=== PATIENT | female | born 2005 | race Caucasian/White ===

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

== ENCOUNTER 2025-08-25 20:56 | Emergency (ER) | payer BC, OTHER, SELFPAY ==
--- NOTE | ~2025-08-25 | CT_ITS ---
CLINICAL HISTORY: fall with headstrike CT cervical spine without contrast Comparison: None provided Findings: Straightening of the normal cervical lordosis. No significant degenerative change. No acute fractures or dislocations. Visualized intracranial contents are unremarkable. Soft tissues of the neck are normal. Lung apices are clear. IMPRESSION: No acute traumatic abnormality in the cervical spine. This document has been electronically signed by: Sarah Jose MD on 08/26/2025 00:04:16
--- NOTE | ~2025-08-25 | CT_ITS ---
CLINICAL HISTORY: fall with headstrike CT head without contrast Comparison: None provided Findings: BRAIN: No acute infarct, hemorrhage, or mass effect. No abnormal atrophy. CSF SPACES: No hydrocephalus or effacement of basal cisterns. SKULL: No calvarial fracture. SINUSES: No significant mucosal thickening or effusion on limited views. ORBITS: Limited views are unremarkable. OTHER: Negative. IMPRESSION: 1. No acute intracranial findings. This document has been electronically signed by: Sarah Jose MD on 08/26/2025 00:08:36
[2025-08-25 21:36] VITALS: BP 105/64; PULSE 78; RESP 18; TEMP 36.4; O2SAT 98; BMI 22.7
[2025-08-25 23:28] VITALS: BP 109/62; PULSE 65; RESP 16; TEMP 36.6; O2SAT 100
--- OUTSIDE RECORDS SUMMARY | 2025-08-25 23:34 | XMS_ITS | Clinical Summary ---
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 Pain in right hand 11/29/2022 Pain in left hand 11/29/2022 Surgical History Surgery Date Site/Laterality Comments ADENOIDECTOMY Medical History Medical History Date Comments Vision problems Adhd Generalized anxiety disorder Autism Social History Tobacco Use Types Packs/Day Years Used Date Smoking Tobacco: Never Assessed Comments Unknown Sex and Gender Information Value Date Recorded Sex Assigned at Not on file Legal Sex Female 10:21 AM EST Gender Identity Not on file Sexual Orientation Not on file Obstetrics History Plan of Treatment Health Maintenance Due Date Last Done Comments Gonorrhea/Chlamydia Screening 2004 Annual Well Child Visit (3-21 years old) 10/21/2020 HIV Screening 10/21/2020 Hepatitis C Screening 10/21/2020 Social Influencers of Health Screening 10/21/2020 Depression Screening 11/14/2024 COVID-19 Vaccine ( season) 2025 11/12/2021, 03/13/2021, 02/20/2021 Influenza Vaccine (#1) 2025 , 09/24/2019, 09/25/2018, Additional history exists Cervical Cancer Screening: Pap Smear 2025 DTaP,Tdap,and Td Vaccines (7 - Td or Tdap) 08/25/2025 08/25/2015, 07/15/2009, 02/10/2006, Additional history exists RSV Immunization Adult Patients (1 - 1-dose 75+ series) 2079 Hepatitis B Vaccines Completed 05/03/2005, 2004, 2004 HIB Vaccines Completed 08/13/2005, 02/12, 2004, Additional history exists Pneumococcal Vaccine: Pediatrics (0 to 5 Years) and At-Risk Patients (6 to 49 Years) Completed 02/10/2006, 02/23/2005, 2004, Additional history exists Hepatitis A Vaccines Completed 09/23/2008, 08/10/20 07 IPV Vaccines Completed 07/15/2009, 04/15, 2004, Additional history exists MMR Vaccines Completed 07/15/2009, 11/25/2005 Varicella Vaccines Completed 05/13/2011, 11/25/2005 HPV Vaccines Completed 03/04/2016, 10/14, 08/25/2015 Meningococcal ACWY Vaccine Completed 05/11/2021, Meningococcal B Vaccine Completed 07/02/2022, 05/21 RSV Immunization Patients Under 20 months Aged Out No longer eligible based on patient's age to complete this topic Goals Goal Patient Goal Type Associated Problems Recent Progress Patient-Stated? Author HEP General No Meka Vera OTR/L Note: Pt will demonstrate understanding and independent carryover of HEP for STM, stretching, and activity modification techniques for management of bilateral hand pain. 11/29/21: goal met Patient stated General Yes Meka Vera OTR/L Note: Pt reports main goal is to learn ways she can help manage her hand pain while at school. 11/29/21: goal met Insurance [employer] Care Teams Billet Driller Relationship Specialty Start Date End Date Linda Pelletier NP [address] [place] [id number] PCP - General Nurse Practitioner 11/24/22
--- OUTSIDE RECORDS SUMMARY | 2025-08-25 23:34 | XMS_ITS | Clinical Summary ---
Author Organization [facility] Address [address] [place] [address] Phone Care Team Providers Care Barrel Straightener Name Role Phone Unavailable Primary Care Provider Unavailabl e Allergies No known active allergies Medications buPROPion XL (Wellbutrin XL) 300 MG 24 hr tablet 05/06/2024 Active busPIRone (Buspar) 10 MG tablet Take 1 tablet by mouth in the morning and 1 tablet before bedtime. 04/24/2024 Active risperiDONE (RisperDAL) 1 MG tablet Take 1 mg by mouth at bedtime. 05/05/2024 Active amphetamine-dex troamphetamine XR (Adderall XR) 10 MG 24 hr capsule TAKE 1 CAPSULE (10 MG) BY MOUTH DAILY IN THE MORNING 03/14/2024 Active hydroxychloroqu ine (Plaquenil) 200 MG tablet 05/05/2024 Activ e famotidine (Pepcid) 20 MG tablet 03/26/2024 Active Sennosides 8.6 MG capsule Take 2 capsules by mouth in the morning. 03/22/2022 Active Calcium Citrate-Vitamin D (calcium citrate-vitamin D2) 315-5 MG-MCG tablet Take by mouth. Active magnesium 300 MG capsule Take by mouth. Active acetaminophen (Tylenol Extra Strength) 500 MG tablet Take by mouth. Active Active Problems Problem Noted Date Diagnosed Date Bilateral impacted cerumen 05/31/2024 Plugged feeling in ear, bilateral 05/31/2024 Family History Medical History Relation Name Comments No Known Problems Mother Sjogren's syndrome Other Relation Name Status Comments Mother Other Social History Tobacco Use Types Packs/Day Years Used Date Smoking Tobacco: Never Smokeless Tobacco: Never Tobacco Cessation:Counseling Given: Not Answered Alcohol Use Standard Drinks/Week Comments Defer 0 (1 standard drink = 0.6 oz pur e alcohol) Comments Unknown Sex and Gender Information Value Date Recorded Sex Assigned at Not on file Legal Sex Female 3:37 PM EST Gender Identity Not on file Sexual Orientation Not on file Last Filed Vital Signs Vital Sign Reading Time Taken Comments Blood Pressure 120/67 05/20/2025 1:53 PM EDT Pulse 82 05/20/2025 1:53 PM EDT Temperature 36.9 C (98.5 F) 05/20/2025 1:53 PM EDT Respiratory Rate 16 05/20/2025 1:53 PM EDT Oxygen Saturation 97% 05/20/2025 1:53 PM EDT Inhaled Oxygen Concentration - - Weight 62.1 kg (137 lb) 05/20/2025 1:53 PM EDT Height 165.1 cm (5' 5 ) 05/20/2025 1:53 PM EDT Body Mass Index 22.8 05/20/2025 1:53 PM EDT Plan of Treatment Upcoming Encounters Date Type Department Care Team (Late st Contact Info) Description 11/15/2025 2:00 PM EST Office Visit [facility] Adult Otolaryngology [address] [facility] [place] [address] Soila Livingston MD [address] [place] [address] Health Maintenance Due Date Last Done Comments Chlamydia and Gonorrhea Screening 2004 Hepatitis C Screening 2022 Influenza Vaccine (#1) 2025 , 11/04/2021, 09/24/2019, Additional history exists Pap Smear 2025 TD Vaccine (21+ Years) 08/25/2025 08/25/2015 Zoster Vaccines (1 of 2) 2054 05/13/2011, 11/14 Hepatitis B Vaccines Completed 05/03/2005, 2004, 2004 HIB Vaccines Completed 08/13/2005, 02/12, 2004, Additional history exists Pneumococcal Vaccine: Pediatrics (0 to 5 Years) and At-Risk Patients (6 to 49 Years) Aged Out 02/10/2006, 02/23/2005, 2004, Additional history exists No longer eligible based on patient's age to complete this topic Hepatitis A Vaccines Completed 09/23/2008, 08/10/20 07 IPV Vaccines Completed 07/15/2009, 04/15, 2004, Additional history exists MMR Vaccines Completed 07/15/2009, 11/25/2005 Varicella Vaccines Completed 05/13/2011, 11/25/2005 HPV Vaccines Completed 03/04/2016, 10/14, 08/25/2015 Meningococcal Vaccine Completed 05/11/2021, 015 Meningococcal B Vaccine Completed 07/02/2022, 05/21 Rotavirus Vaccines Aged Out No longer eligible based on patient's age to complete this topic Insurance
--- NOTE | 2025-08-25 23:35 | PC.NURSE ---
pt ambulated out of CT scan with steady gate, pt confirms dizziness, lightheadedness, and headache, no deficits with hand grasps, no visual changes per pt. roommate at bedside. Pt states she slipped on some uneven surface outside her dorm, there were two bystanders but no one she knows. Unsure if she had a head strike or LOC.
--- NOTE | 2025-08-26 00:20 | ED.GENADULT ---
[facility] - General Adult General Chief complaint: Fall Stated complaint: neck injury, loss of consciousness, (fa;;) Time Seen by Provider: 08/26/25 00:08 Source: patient Mode of arrival: ambulatory Limitations: no limitations History of Present Illness ED Provider: Dr. Montesinos [facility] narrative: 20-year-old female presented hospital today after a fall. Patient fell backward. She landed on her buttocks and her back. It is complaining of neck pain. Patient states she does have some paresthesias going down her arms however this has been improving. The patient has difficulty turning her neck due to the pain in her neck. Able to ambulate without any issues. Related Data Previous Rx's ?Medication ?Instructions ?Recorded ketorolac 10 mg tablet 10 mg PO TID PRN pain 5 days #15 01/06/23 tabs ondansetron 4 mg disintegrating 4 mg PO Q6H PRN nausea and 01/06/23 tablet vomiting #14 tabs cyclobenzaprine 5 mg tablet 5 mg PO TID PRN muscle spasm 7 08/26/25 days #20 tabs lidocaine 5 % topical patch 1 patch topical DAILY #15 ea 08/26/25 Allergies Allergy/AdvReac Type Severity Reaction Status Date / Time No Known Allergies Allergy Verified 08/25/25 21:38 Review of Systems Review of Systems: Pertinent review of systems as mentioned in [facility]. All other system otherwise negative. [facility] Past Medical History [facility] Narrative: Medical history as mentioned in [facility] Social History Social History Smoked in Last 30 Days: No Use of substances other than those prescribed or required for medical reasons: No Advance Directives: No Advance Directives Information Provided: No Physical Exam ED Exam Exam: General: Pleasant, no distress, interacting appropriately Head: Normacephalic, atraumatic ENT: oral mucosa moist, neck supple, no tracheal deviation, bilateral trapezius spasm on exam difficulty turning her head due to stiffness. Cardiovascular: regular rate, regular rhythm, no murmurs, rubbing, gallops Respiratory: CTAB, no wheeze, rales, rhonchi Gastrointestinal: Soft, non distended, non tender, non guarding Extremities: Full range of motion upper and lower extremities Neurological: Awake and alert, no facial droop noted Skin: Warm and dry Psychiatric: Appropriate mood and thoughts Vital Signs: Vital Signs - 24 hr 08/25/25 21:36 08/25/25 23:28 Temperature 97.5 F 98 F Pulse Rate 78 65 Respiratory Rate 18 16 Blood Pressure 105/64 109/62 Pulse Oximetry 98 100 Oxygen Delivery Method Room Air Room Air BMI result Body Mass Index 22.7 Medications Administered Discontinued Medications Generic Name Dose Route Start Last Admin Trade Name Freq PRN Reason Stop Dose Admin Acetaminophen 975 mg 08/26/25 00:30 08/26/25 00:39 Acetaminophen 325 Mg Tablet PO 08/26/25 00:31 975 mg ONCE ONE Administration Diazepam 5 mg 08/26/25 00:30 08/26/25 00:38 Diazepam 5 Mg Tablet PO 08/26/25 00:31 5 mg ONCE ONE Administration Medical Decision Making Medical Decision Making [facility] Narrative: 20-year-old female presented hospital today after falling down the stairs. CT head was negative. CT C-spine is negative. On exam patient does have trapezius spasm likely torticollis due to her cervical strain. We will plan to give patient a dose of Valium here we will Tylenol. The patient will be discharged with a course of Flexeril and lidocaine patch to take. Encouraged the patient to passively stretch her neck. Patient's paresthesias improving. I do not think there is a spinal cord injury. Her strength is intact bilateral upper and lower extremities. Patient will be discharged at this time. Differential Diagnosis Differential Diagnoses: The differential diagnosis associated with the presentation includes Cervical spine fracture, cervical strain, head injury, fall Independent Interpretation I performed an independent interpretation of an: CT Scan Radiology Impression Discussion of test interpretation with radiology: I have reviewed the radiologist's reading. Discharge Plan Discharge Clinical Impression: Acquired torticollis Patient Disposition: Home, Self-Care Prescriptions: New cyclobenzaprine 5 mg tablet 5 mg PO TID PRN (Reason: muscle spasm) 7 Days Qty: 20 0RF lidocaine 5 % adhesive patch,medicated 1 patch topical DAILY Qty: 15 0RF Rx Instructions: leave on most painful area for up to 12 hrs No Action ketorolac 10 mg tablet 10 mg PO TID PRN (Reason: pain) 5 Days Qty: 15 0RF Rx Instructions: Tolerated IM in the department ondansetron 4 mg tablet,disintegrating 4 mg PO Q6H PRN (Reason: nausea and vomiting) Qty: 14 0RF Print Language: German
[2025-08-26 00:49] VITALS: BP 122/65; PULSE 62; RESP 16; TEMP 36.6; O2SAT 97
== END 2025-08-26 00:50 | disposition home or self-care (01) ==
PROVIDERS: Emergency Provider Student in an Organized Health Care Education/Training Program
DX: M43.6 Torticollis (principal); M54.2 Cervicalgia; R20.2 Paresthesia of skin
CPT/HCPCS: 70450; 72125; 99284

== ENCOUNTER → 2025-08-25 23:17 | Outpatient (BNV) | payer BC, OTHER, SELFPAY | PROVIDERS: Emergency Provider Student in an Organized Health Care Education/Training Program; Visit Provider Student in an Organized Health Care Education/Training Program | DX: M54.2 Cervicalgia (principal); S09.90XA Unspecified injury of head, initial encounter; W19.XXXA Unspecified fall, initial encounter | CPT/HCPCS: 70450; 72125 ==